=== PATIENT | female | born 1990 | race Caucasian/White ===

== ENCOUNTER 2019-01-14 17:33 | Emergency (ER) | payer SELFPAY ==
[2019-01-14] MEDS ORDERED: Albuterol/Ipratropium 3.0-0.5 MG/3 ML Neb Soln NEB ONE (17:45)
[2019-01-14] MEDS ORDERED: Albuterol/Ipratropium 3.0-0.5 MG/3 ML Neb Soln ONE (17:47)
[2019-01-14] MEDS ORDERED: Ketorolac 60 MG/2 ML SDV IM ONE (17:52)
--- NOTE | 2019-01-14 17:52 | EDM.PDOC ---
ED HPI GENERAL MEDICAL PROBLEM - General Chief Complaint: Chest Pain Stated Complaint: CHEST PAIN Time Seen by Provider: 01/14/19 17:37 - History of Present Illness INITIAL COMMENTS - FREE TEXT/NARRATIVE: HISTORY AND PHYSICAL: History of present illness: The patient is a 28-year-old female who does smoke cigarettes and presents with complaints of less than 24 hours of feeling a discomfort with her breathing and a burning-like sensation along with a cough occasionally productive of some blood-tinged sputum and some chest and back discomfort. The patient denies any cardiac or pulmonary problems and denies as she has had a hysterectomy and presents the symptoms that started this morning and she is concerned. She does smoke cigarettes but denies drug use. She was outdoors last evening during multiple fireworks displays but says that she doesn't recall the year being particularly smoky or there being debris. She was not exposed to any chemicals that she is aware of. He says it is discomforting to take deep breaths and indicates the entire anterior and posterior chest wall as the location of her discomfort and there is no one particular area right or left anterior posterior. She otherwise is eating and drinking normally without any abdominal pain vomiting or diarrhea and has no neck or back pain. Review of systems: As per history of present illness and below otherwise all systems reviewed and negative. Past medical history: As per history of present illness and as reviewed below otherwise noncontributory. Surgical history: As per history of present illness and as reviewed below otherwise noncontributory. Social history: No reported history of drug or alcohol abuse. Family history: As per history of present illness and as reviewed below otherwise noncontributory. Physical exam: General: Well-developed well-nourished female who is nontoxic and vital signs are noted by me HEENT: Atraumatic, normocephalic, , negative for conjunctival pallor or scleral icterus, mucous membranes moist, throat clear, neck supple, nontender, trachea midline. There is no sinus tenderness but the turbinates are slightly boggy bilaterally left greater than right. There is a mobile cervical lymph node at the angle of the mandible on the left versus a salivary gland which is not of concern to the patient and is more chronic. Lungs: diminished breath sounds throughout all lung olivas and somewhat quiet throughout, but no work of breathing wheezing or stridor,, breath sounds equal bilaterally, chest nontender. Heart: S1S2, regular rate and rhythm no overt murmurs Abdomen: Soft, nondistended, nontender. NABS Pelvis: Deferred Genitourinary: Deferred. Rectal: Deferred. Extremities: Atraumatic, no pedal edema or leg asymmetry Neurovascular unremarkable. Neuro: Awake, alert, oriented. Cranial nerves II through XII unremarkable. Cerebellum unremarkable. Motor and sensory unremarkable throughout. Exam nonfocal. Diagnostics: EKG chest x-ray Therapeutics: DuoNeb Toradol IM prednisone, spacer and teaching After the DuoNeb the patient is moving air much better and air exchange is much improved. Patient says she feels like she is breathing better but she still has the discomfort. Is unclear what triggered this bronchospasm and the discomfort associated with it but we will proceed to treat it with an inhaler and prednisone. I will advise for [id number] anti-inflammatory use for pain management. Impression: bronchospasm, pleuritic chest pain Definitive disposition and diagnosis as appropriate pending reevaluation and review of above. chest Pain Score (Numeric/FACES): 9 - Related Data Allergies Allergy/AdvReac Type Severity Reaction Status Date / Time fentanyl Allergy Chest Pain Verified 01/14/19 17:41 Home Meds: Home Meds cloNIDine HCl [Clonidine HCl ER] 01/14/19 [History] traZODone HCl [Trazodone HCl] 01/14/19 [History] Past Medical History Other Cardiovascular History: mass removal from chest. - Infectious Disease History Infectious Disease History: Reports: None - Past Surgical History GI Surgical History: Reports: Cholecystectomy Social & Family History - Family History Family Medical History: Noncontributory - Tobacco Use Smoking Status *Q: Current Every Day Smoker Years of Tobacco use: 12 Packs/Tins Daily: 1 - Recreational Drug Use Recreational Drug Use: No ED ROS GENERAL - Review of Systems Review Of Systems: ROS reveals no pertinent complaints other than HPI. ED EXAM, GENERAL - Physical Exam Exam: See Below (See dictation) Course - Vital Signs Last Recorded V/S: Last Vital Signs Temp 36.8 C 01/14/19 17:39 Pulse 95 01/14/19 17:39 Resp 20 01/14/19 17:39 BP 129/70 01/14/19 17:39 Pulse Ox 96 01/14/19 17:39 - Orders/Labs/Meds Orders: Active Orders 24 hr Category Date Time Status Communication Order [RC] STAT Care 01/14/19 18:47 Ordered RT Aerosol Therapy [RC] ASDIRECTED Care 01/14/19 17:45 Active Chest 2V [CR] Stat Exams 01/14/19 17:46 Taken Meds: Medications Discontinued Medications Generic Name Dose Route Start Last Admin Trade Name Carrillo PRN Reason Stop Dose Admin Albuterol/Ipratropium 3 ml 01/14/19 17:45 01/14/19 17:50 Duoneb 3.0-0.5 Mg/3 Ml NEB 01/14/19 17:46 3 ml ONETIME ONE Administration Albuterol/Ipratropium Confirm 01/14/19 17:47 Duoneb 3.0-0.5 Mg/3 Ml Administered 01/14/19 17:48 Dose 3 ml .ROUTE .STK-MED ONE Ketorolac Tromethamine 60 mg 01/14/19 17:52 Toradol IM 01/14/19 17:53 ONETIME ONE Prednisone 20 mg 01/14/19 18:47 Prednisone PO 01/14/19 18:48 ONETIME ONE Departure - Departure Time of Disposition: 18:51 Disposition: Home, Self-Care 01 Condition: Good Clinical Impression: Bronchospasm, Pleuritic chest pain - Discharge Information Forms: ED Department Discharge Additional Instructions: The following information is given to patients seen in the emergency department who are being discharged to home. This information is to outline your options for follow-up care. We provide all patients seen in our emergency department with a follow-up referral. The need for follow-up, as well as the timing and circumstances, are variable depending upon the specifics of your emergency department visit. If you don't have a primary care physician on staff, we will provide you with a referral. We always advise you to contact your personal physician following an emergency department visit to inform them of the circumstance of the visit and for follow-up with them and/or the need for any referrals to a consulting specialist. The emergency department will also refer you to a specialist when appropriate. This referral assures that you have the opportunity for followup care with a specialist. All of these measure are taken in an effort to provide you with optimal care, which includes your followup. Under all circumstances we always encourage you to contact your private physician who remains a resource for coordinating your care. When calling for followup care, please make the office aware that this follow-up is from your recent emergency room visit. If for any reason you are refused follow-up, please contact the [facility] emergency department at and ask to speak to the emergency department charge nurse. [facility] Primary care- Internal Medicine and Family [address] [address] Use inhaler as directed 1-2 puffs every 6 hours for the next 2 days and then every 6 hours as needed for coughing or shortness of breath. 8 the prednisone as directed taking the first dose at home tomorrow. Use [id number] Tylenol /ibuprofen/Aleve for pain management as we discussed. Return to ER as needed and as discussed. Please call and schedule a follow-up appointment in the clinic for further care and evaluation. - My Orders Last 24 Hours: My Active Orders 01/14/19 17:45 RT Aerosol Therapy [RC] ASDIRECTED 01/14/19 17:46 Chest 2V [CR] Stat 01/14/19 18:47 Communication Order [RC] STAT - Assessment/Plan Last 24 Hours: My Active Orders 01/14/19 17:45 RT Aerosol Therapy [RC] ASDIRECTED 01/14/19 17:46 Chest 2V [CR] Stat 01/14/19 18:47 Communication Order [RC] STAT
[2019-01-14] MEDS ORDERED: predniSONE 20 MG Tab PO ONE (18:47)
--- NOTE | 2019-01-14 18:59 | CR ---
INDICATION: Chest pain and cough. TECHNIQUE: PA and lateral chest. Comparison: None FINDINGS: Blunting of the posterior costophrenic sulci bilaterally may indicate small effusions or pleural thickening. Normal heart size and pulmonary vascular pattern. No pulmonary infiltrates are identified. Mediastinal surgical clip in the region of the aortic knob. Surgical clips right upper quadrant. IMPRESSION: 1. Pleural thickening versus small bilateral pleural effusions posteriorly. 2. No pulmonary infiltrates. Dictated by Nicolás Walls MD @ Jan 14 2019 6:55PM Signed by Dr. Nicolás Walls @ Jan 14 2019 6:57PM
== END 2019-01-14 19:11 | disposition home or self-care (01) ==
LOC: MW.ED 17:33
DX: J98.01 Acute bronchospasm (principal); F17.210 Nicotine dependence, cigarettes, uncomplicated; Z88.8 Allergy status to other drugs, medicaments and biological substances; Z90.49 Acquired absence of other specified parts of digestive tract
CPT/HCPCS: 71046; 93005; 94640; 96372; 99285; A9270; J1885; J7620-GY